=== PATIENT | female | born 1990 | race Caucasian/White ===

== ENCOUNTER 2023-07-05 12:47 | Outpatient (CLI) | payer BC, SELFPAY ==
--- NOTE | 2023-07-05 13:00 | CRLHL7_ITS ---
For Patients: As a result of the Cures Act, medical imaging exams and procedure reports are released immediately into your electronic medical record. You may view this report before your referring provider. If you have questions, please contact your health care provider. INDICATION: First trimester scan, establish dates. COMPARISON: None. TECHNIQUE: Real-time ames-scale imaging of the pelvis was performed. FINDINGS: Sonographic imaging demonstrates a single living intrauterine gestation. The embryo demonstrates a regular cardiac rate measuring 171 beats per minute. The embryo`s crown-rump length measurement of 1.4 cm corresponds to a gestational age of 7 weeks 5 days with a sonographic due date of 02/16/2024. There is a normal-appearing yolk sac. There are no gross abnormalities noted within the embryo at this early state of development. The gestational sac has a normal appearance. There is a 1.3 x 0.6 x 1.3 cm perigestational hemorrhage. The amount of fluid within the sac appears appropriate for gestational age. The cervix is closed. Gestational sac within the left side of the uterus. Septate uterus noted with blood products within the right side of the uterus. The ovaries are not visualized. There are no suspicious fluid collections noted in the cul-de-sac. IMPRESSION: Single living intrauterine with sonographic gestational age 7 weeks 5 days and sonographic due date of 02/16/2024. Lower uterine segment subchorionic hemorrhage measuring 1.3 x 0.6 x 1.3 cm. Septate uterus with the gestational sac located within the left side of the uterus. Within the right side of the uterus there is echogenic fluid compatible with blood products. Dictated by Indra Rivas MD @ 07/06/2023 10:46:24 AM (Electronically Signed)
== END 2023-07-05 12:48 | disposition home or self-care (01) ==
LOC: US 12:48
PROVIDERS: Visit Provider Advanced Practice Midwife
DX: Z34.91 Encounter for supervision of normal pregnancy, unspecified, first trimester (principal); O20.9 Hemorrhage in early pregnancy, unspecified; Z3A.01 Less than 8 weeks gestation of pregnancy
CPT/HCPCS: 76817; 84443; 86703; 86803; 86850; 86900; 86901; 87086; 87340

== ENCOUNTER 2023-07-05 14:19 | Outpatient (CLI) | payer BC, SELFPAY | END 2023-07-05 14:20 | disposition home or self-care (01) | PROVIDERS: Visit Provider Advanced Practice Midwife | DX: Z34.91 Encounter for supervision of normal pregnancy, unspecified, first trimester (principal); O20.9 Hemorrhage in early pregnancy, unspecified; Z3A.01 Less than 8 weeks gestation of pregnancy | CPT/HCPCS: 84443; 86592; 86703; 86762; 86787; 86803; 86850; 86900; 86901; 87086; 87340 ==

== ENCOUNTER 2023-10-03 09:54 | Outpatient (CLI) | payer BC, SELFPAY | END 2023-10-03 09:55 | disposition home or self-care (01) | LOC: NFLDREF 09:55 | PROVIDERS: Visit Provider Advanced Practice Midwife | DX: E03.9 Hypothyroidism, unspecified (principal) | CPT/HCPCS: 84443 ==

== ENCOUNTER 2023-11-28 12:49 | Outpatient (CLI) | payer BC, SELFPAY ==
--- NOTE | 2023-11-28 13:00 | CRLHL7_ITS ---
For Patients: As a result of the Cures Act, medical imaging exams and procedure reports are released immediately into your electronic medical record. You may view this report before your referring provider. If you have questions, please contact your health care provider. INDICATION: Morbid obesity due to excess calories COMPARISON: 10/23/2023 TECHNIQUE: Real time ames scale imaging of the fetus was performed. FINDINGS: Sonographic imaging demonstrates a single living intrauterine gestation. Fetus demonstrates a regular cardiac rate of 171 beats per minute. Fetus has a vertex position. The placenta lies posteriorly. Amniotic fluid volume appears normal and there is a single deepest vertical pocket: 4.5 cm. The estimated weight is 1248gm which lies at the 42nd %. On the prior OB ultrasound exam dated 10/23/2023 the estimated weight was at the 54th%. BPD 79th percentile. HC 56th percentile. AC 40th percentile. FL 32nd percentile. The HC/AC ratio measures 1.13 range (0.99-1.21). IMPRESSION: Sonographic gestational age 29 weeks 0 days and sonographic due date of 02/13/2024. Sonographic age 4 days ahead of the clinical age. Estimated weight 42nd percentile. Abdominal circumference 40th percentile. Dictated by Indra Rivas MD @ 11/29/2023 11:46:54 AM (Electronically Signed)
== END 2023-11-28 12:50 | disposition home or self-care (01) ==
LOC: US 12:49
PROVIDERS: Visit Provider Advanced Practice Midwife
DX: O99.213 Obesity complicating pregnancy, third trimester (principal); Z3A.29 29 weeks gestation of pregnancy
CPT/HCPCS: 76816; 86592

== ENCOUNTER 2024-01-11 13:46 | Outpatient (CLI) | payer BC, SELFPAY ==
--- NOTE | 2024-01-11 14:00 | US_ITS ---
Final Report Patient: MICKI BLUM Facility:?[facility] Patient ID:?[id number] Site Patient ID:?[id number]. Site :?[id number] Study:? OB Pelvis -01/11/2024 2:50:51 PM Ordering Physician:?Micki Gallagher Final Report: INDICATION: abnormal weight loss TECHNIQUE: Real time ames scale imaging of the fetus was performed. COMPARISON: 11.28.23 FINDINGS: Sonographic imaging demonstrates a single living intrauterine gestation. Fetus demonstrates a regular cardiac rate of 138 beats per minute. Fetus has a breech position. The placenta lies left-sided. Amniotic fluid volume appears normal and there is a single deepest pocket of 3.9 cm. The estimated weight is 2606gm which lies at the 59th %. On the prior OB ultrasound dated 11/28/2023 the estimated weight was at the 42nd percentile. BPD 36th percentile. HC 20th percentile. AC 86th percentile. FL 27th percentile. The fetus was active and demonstrated normal breathing movements. There was normal flexion and extension of the trunk and extremities. IMPRESSION: Normal biophysical profile score 8/8. Sonographic gestational age 34 weeks 5 days and sonographic due date of 02/17/2024. Good correlation with dates. Normal interval growth. Dictated by Indra Rivas MD @ 01/11/2024 2:58:34 PM (Electronic Signature)
== END 2024-01-11 13:47 | disposition home or self-care (01) ==
LOC: US 13:47
PROVIDERS: Visit Provider Advanced Practice Midwife
DX: Z34.93 Encounter for supervision of normal pregnancy, unspecified, third trimester (principal); R63.4 Abnormal weight loss; Z3A.34 34 weeks gestation of pregnancy
CPT/HCPCS: 76816; 76819; 84443

== ENCOUNTER 2024-01-25 14:27 | Outpatient (CLI) | payer BC, SELFPAY ==
[2024-01-26 19:53] LABS: Strep B DNA Probe POSITIVE (Negative)
[2024-01-26 20:14] LABS: Strep B Susceptibility Needed? No
== END 2024-01-25 14:28 | disposition home or self-care (01) ==
LOC: NFLDREF 14:27
PROVIDERS: Visit Provider Obstetrics & Gynecology
DX: Z34.93 Encounter for supervision of normal pregnancy, unspecified, third trimester (principal)
CPT/HCPCS: 87081; 87653

== ENCOUNTER 2024-02-03 23:20 | Inpatient (IN) | payer BC, SELFPAY ==
[2024-02-03 23:12] VITALS: BP 112/73; PULSE 108; RESP 16; TEMP 36.9
[2024-02-03 23:19] VITALS: PULSE 89; O2SAT 96
[2024-02-03 23:23] VITALS: BMI 53.2
[2024-02-03] MEDS: LACTATED RINGERS 1000 ML 1,000 ML 999 ML IV (23:33)
[2024-02-03 23:42] LABS: Basophils Percent Auto 0.2 % (0.0-3.0); Eosinophils Percent Auto 2.1 % (0.0-7.0); Hematocrit 38.4 % (33.0-51.0); Hemoglobin* 12.7 gm/dL (12.0-16.0); Immature Granulocytes Pct Auto 1.1 %; Lymphocytes Percent Auto 22.4 % (20-44); Mean Corpuscular HGB Conc 33 gm/dL (32-36); Mean Corpuscular Hemoglobin 28 pg (26-34); Mean Corpuscular Volume 85 fL (80-100); Monocytes Percent Auto 6.8 % (0.0-11.0); Neutrophils Percent Auto 67.4 % (42.0-72.0); Platelet Count* 191 K/uL (140-440); RDW Coefficient of Variation % 13.7 % (11.5-15.5); Red Blood Count 4.51 m/uL (4.00-5.20); White Blood Count* 14.04 K/uL (4.50-11.00)
[2024-02-03 23:44] LABS: Slide Review Reflex No
[2024-02-03] MEDS: AZITHROMYCIN 500 MG in 0.9 % SODIUM CHLORIDE 250 ml 250 ML 255 MG IVPB (23:55)
--- NOTE | 2024-02-03 23:56 | P.LDBA_ITS ---
Subjective History of Present Illness Date Seen: 02/03/24 Narrative: Patient is being admitted to Labor and Delivery for repeat delivery with salpingectomy. She is a 33 year old -0-1-1 woman at 38 0/7 weeks' gestation. Had rupture of membranes this evening. Currently, she is not feeling any contractions. Her history is notable for previous , and she is planning a repeat for this indication. Her fetus is known to be in breech presentation, which is confirmed on bedside ultrasound tonight. Also, she desires sterilization, and is planning for removal of her remaining tube at time of delivery. She has a history of previous ectopic with salpingectomy for treatment. Her full history and physical was dictated by Dr. Jones on 02/01/2024. Please see this for details. Specific Issues/Plans 1. Hx of a c/s for breech presentation and oligo Planning repeat c/s Growth in 3rd trimester: 01/11/2024: Breech, normal fluid with SDP 3.9 cm, EFW 59%, AC 86%. 2. Hx of oligo US in 3rd trimester normal as above Planning w/ BPP for BMI at 34 weeks 3. Hx of ectopic 4. BMI >50 Baseline Labs to include HgB A1C: 5.3% Referral to rasper machine operator: declined Referral to anesthesia: ordered Referral to OBGYN if [facility] or [employer] [employer] patient 20-week Level II detailed ultrasound, consult with MFM: Posterior placenta, no previa. Normal anatomy. Suboptimal views of facial anatomy and cardiac anatomy. Follow-up ultrasound with MFM in 4 weeks: EFW 52%, unremarkable limited anatomy Early screening for GDM (1-hour) at 16-20 weeks: Patient declined, risks of undiagnosed gestational diabetes were discussed Weekly BPP and/or NST starting at 34 weeks per MFM recommendation: Ordered, declines 35 week visit Growth ultrasound at 28 and 34 weeks per MFM recommendation: ordered w/ BPP 5. Hypothyroid TSH in 1st trimester: 1.95, continued on 50 mcg TSH second-trimester: 1.63 TSH 3rd trimester 01/11: 1.610 6. Septate uterus on 1st trimester US Growth 3rd trimester 01/11/2024: Breech, normal fluid with SDP 3.9 cm, EFW 59%, AC 86%. 7. GBS positive. COVID: fully vaccinated boosted x1 Flu: 09/04/23 TDAP: 12/12/2023 32wk Mental Health: H&P: Robert on 02/01/24 PP contraception: Salpingectomy of the remaining left tube at time of CD OB - Problem Based A/P Additional Plan (1) History of section: Problem details: Female Ghislaine 01/19/[birth year]. Breech. Status: Acute Plan: Now with rupture membranes at term. Plan is for repeat delivery with removal of remaining tube. She has already signed consent forms with Dr. Jones. She confirms desire for salpingectomy and has no questions regarding surgery. We will use a Zithromax and cefazolin for antibiotics. I will likely use a silver dressing for reduction in incision section risk. I will use Lovenox for prevention of thrombosis postoperatively. (2) Morbid obesity with body mass index (BMI) of 45.0 to 49.9 in adult: Status: Chronic (3) PROM (premature rupture of membranes): Status: Acute Delivery/Labor/Induction Plan Plan: Section OB Result Labs GBS Status: positive OB Exam Physical Exam Vital signs: Temp Pulse Resp BP Pulse Ox 98.5 F 108 H 16 112/73 96 02/03/24 23:12 02/03/24 23:12 02/03/24 23:12 02/03/24 23:12 02/03/24 23:19 Narrative: General: Pleasant, no acute distress Heart: Regular rate and rhythm, no murmur or gallop Lungs: Clear to auscultation bilaterally Abdomen: Soft, nontender, gravid, minimal pannus Lower extremities: No edema or erythema Nonstress test: Baseline 140, accelerations present, no decelerations, moderate variability. Procedure Note: Limited OB Ultrasound (CPT 12134) Performed for indication of ascertation of lie prior to . Transabdominal probe utilized. Fetus in lawrence breech position with heart rate approximately 140. Amniotic fluid subjectively low. Impression: Viable fetus with lawrence breech presentation
[2024-02-04] VITALS (30 sets, daily range): BP systolic 97–110; BP diastolic 63–75; PULSE 64–86; RESP 16–18; TEMP 36.3–37.1; O2SAT 18–100
[2024-02-04] MEDS: CEFAZOLIN 2 GM INJ IVP (00:45)
--- NOTE | 2024-02-04 02:21 | PM.OBPRCCS ---
Procedure Date of procedure: 02/04/24 Procedure Done: Global Will [facility] bill your pro fee for this procedure?: Yes Procedure Description: PREOPERATIVE DIAGNOSIS: 38 weeks' gestation Spontaneous rupture of membranes Previous delivery, desires repeat Undesired fertility Previous right salpingectomy for treatment of ectopic POSTOPERATIVE DIAGNOSIS: Same PROCEDURE: Primary low-transverse section with left salpingectomy and excision of peritoneal nodule SURGEON: Ellie Mi MD ANESTHESIA: Spinal IV FLUIDS: 1800 QBL: 600 mL Urine output: 150 mL FINDINGS: 1. Male infant, lawrence breech presentation, Apgars of 8 and 9, weight 3025 g 2. Right fallopian tube was surgically absent. Uterus was bulky along the right side, suggestive of an elongated intramural fibroid. There was also a muscular septum palpable extending from the midline fundus, measuring approximately 4 cm in length. Left fallopian tube was normal in appearance, as were bilateral ovaries. 3. There was a 2 cm nodule in the peritoneum of the anterior abdominal wall near the upward aspect of the incision that was fatty in appearance, suggestive of a lymph node. COMPLICATIONS: None PROCEDURE IN DETAIL: Patient was taken to the operating room with IV running. She received cefazolin and azithromycin in preoperative prophylaxis. Spinal anesthesia was administered. Quiroga catheter was inserted. She was prepped and draped in the usual sterile fashion. Anesthesia was tested and found to be adequate. A low-transverse skin incision was made with a scalpel and carried through to the underlying layer of fascia with the scalpel. The subcutaneous fat was dissected off the underlying fascia with Bovie. The fascia was nicked in the midline with a scalpel, and this incision was extended laterally with scissors. The fascia was noted to be thickened and scarred, consistent with previous incision. The fascia was dissected off the underlying rectus muscles with combination of sharp and blunt dissection. The rectus muscles were in the midline. Peritoneum was identified and entered bluntly. Bovie was used to widen this opening laterally. The bladder reflection was found to be well below the planned site for hysterotomy. Low-transverse uterine incision was made with a scalpel. Incision was widened bluntly. The infant's breech was grasped through the hysterotomy, but the hysterotomy to was not initially large enough to accommodate delivery of the . A T extension was created involving hysterotomy. The 's breech was then delivered through the hysterotomy, followed by the legs. The body was turned 1st to the left, then to the right to accommodate delivery of the arms, sweeping them across the chest. Finally, the 's head was delivered with the help of abdominal pressure, and was maintained in a flexed her neutral position. The mouth and nose were bulb suctioned. The cord was doubly clamped and cut. was handed off to attending rehabilitation specialist. The placenta was delivered manually, when traction on the cord alone did not suffice. The uterus was exteriorized. The uterus was cleaned of all clots and debris with the dry lap pad. The uterus was manually explored, with findings as noted above. The hysterotomy was reapproximated with 0 Vicryl in a running, locked fashion. Second layer of the same suture was used in imbricating fashion to obtain hemostasis. The adnexa were examined with findings as noted above. The left fallopian tube was grasped with Cathy clamps, and the LigaSure exact device was used to divide the cornual segment of the fallopian tube from the uterus. Dissection was carried medially to laterally through the mesosalpinx, and the blood supply of the tube was divided laterally, releasing it from the broad ligament. The specimen was sent to pathology. The dissection bed revealed hemostasis. The cul-de-sac was cleansed with a dampened laparotomy sponge. The uterus was returned to the abdomen. The gutters were cleansed with another laparotomy sponge, removing any further clots and debris. The hysterotomy was reexamined and found to be hemostatic. The peritoneum was reapproximated with 2 0 Vicryl in a running fashion. During this time, the above described nodule was noted, and this was removed from the surrounding peritoneum with the LigaSure exact device. This was sent to pathology. Hemostasis was noted. The rectus muscles were examined and found to be hemostatic. The fascia was reapproximated with looped 0 PDS in a running fashion. Subcutaneous fat was irrigated and Bovie used on oozing vessels. The subcutaneous fat was reapproximated with 2 0 plain gut suture in an interrupted fashion. The skin was closed with a subcuticular stitch of 4-0 Monocryl. Steri-Strips were applied above this, and silver dressing was then applied. Patient tolerated procedure well was taken to recovery area in stable condition. Complications: None Pathology: specimen obtained, sent to pathology Surgery Debrief Performed: Yes Surgery Debrief Comment: Confirmed desired specimen labeling: Left fallopian tube, peritoneal nodule peer Condition: stable Disposition: floor Infant total score - 1 minute: 8 total score - 5 minute: 9
--- NOTE | 2024-02-04 03:01 | W.ANESCHARGE ---
Anesthesia Charges Start Date/Time Anesthesia Start Date: 02/04/24 Anesthesia Start Time: 00:35 Stop Date/Time Anesthesia Stop Date: 02/04/24 Anesthesia Stop Time: 02:43 Summary Emergency: EMERGENCY MANAGEMENT COORDINATOR
--- NOTE | 2024-02-04 03:02 | W.PM.NB ---
Nerve Block Nerve Block Time Seen by Provider: 02:35 Date Seen: 02/04/24 Type of block requested by surgeon for post-operative analgesia: TAP Side: bilateral Time out performed: Yes Verification of patient name: Yes Verification of date of : Yes Site marking: site marked Name of person performing procedure: Napoleon Tianna Continuous monitoring Was continuous monitoring of O2 sat, B/P, monitor car operator, recorded every 15 minutes?: Yes Procedure Checklist: sterile prep, needles and gloves Ultrasound guided. Images saved: Yes Medications given in 5ml increments after negative aspiration: Marcaine %: 0.25 mL: 30 Needle gauge: 21 and Exparel mL: 10 Needle gauge: 21 Patient tolerated procedure well: Yes Additional comments: Injected in 5mL increments after negative aspiration Block Charges Block Charge (with Pro Fee): TAP Bilateral Use of Ultrasound Machine for Block: Yes- US Guidance/pain block
[2024-02-04] MEDS: LACTATED RINGERS 1000 ML 1,000 ML 125 ML IV (04:29)
[2024-02-04] MEDS: KETOROLAC 30 MG/ML inj IVP ×3 (08:17→20:14)
[2024-02-04] MEDS: ENOXAPARIN 40 MG/0.4 ML INJ SUBCUT (08:17)
[2024-02-04] MEDS: DOCUSATE SODIUM 100 MG CAPSULE PO (08:17)
[2024-02-04] MEDS: SODIUM CHLORIDE 0.9 % (FLUSH) 10 ML SYRINGE IVF (14:09)
[2024-02-05 00:45] VITALS: BP 120/72; PULSE 87; RESP 16; TEMP 36.7; O2SAT 95
[2024-02-05 01:04] VITALS: RESP 16; O2SAT 95
[2024-02-05] MEDS: KETOROLAC 30 MG/ML inj IVP ×2 (02:30→09:08)
[2024-02-05 06:01] LABS: Hemoglobin* 10.7 gm/dL (12.0-16.0)
[2024-02-05] MEDS: ENOXAPARIN 40 MG/0.4 ML INJ SUBCUT (09:08)
[2024-02-05] MEDS: DOCUSATE SODIUM 100 MG CAPSULE PO (09:09)
[2024-02-05 09:17] VITALS: BP 100/68; PULSE 86; RESP 16; TEMP 37.1; O2SAT 96
--- NOTE | 2024-02-05 10:24 | PM.OBPNVD1 ---
Documented by User: Vamshi Juarez 02/05/24 11:03 OB - PN:Subj Subjective Time Seen by Provider: 10:24 Date Seen: 02/05/24 Patient comments OB post-: no complaints, pain well controlled and flatus present [place] infant status: and doing well [place] feeding status: exclusively OB - PN: Obj Exam Physical Exam: Vital signs: Temp Pulse Resp BP Pulse Ox O2 Del Method 98.7 F 86 16 100/68 96 Room Air 02/05/24 09:17 02/05/24 09:17 02/05/24 09:17 02/05/24 09:17 02/05/24 09:17 02/05/24 09:17 Constitutional: Constitutional: no acute distress Urinary Catheter Management: Urethral: Cath placed during this visit: yes, but has since been removed by the nurse Reason for continuing: surgical procedure Insertion date: 02/04/24 Insertion time: 01:04 Removal date: 02/04/24 Removal time: 14:00 OB - PN: Obj Data Labs Labs: Laboratory Results - last 24 hr 02/05/24 05:50 Hgb 10.7 L OB - PN: A/P Delivery Assessment and Plan (1) care following delivery: Status: Acute (2) Lactating mother: Status: Acute Plan The patient feels well.? The pain is well controlled with current medications.? She has no new complaints.? Urinary output is adequate and she is voiding without difficulty.? Has a good appetite, is tolerating a general diet, is passing flatus? Has scant amount of rubra lochia.? She is ambulating well. She is and reports it is going well.? Plan day: 1 Plan: routine care Comments: Anticipating d/c in 1-2 days Documented by User: Hattie Gallagher CNM 02/05/24 19:13 OB - PN:Subj Subjective Narrative: The patient feels well.? The pain is well controlled with current medications.? She has no new complaints.? Urinary output is adequate and she is voiding without difficulty.? Has a good appetite, is tolerating a general diet, is passing flatus? Has scant amount of rubra lochia.? She is ambulating well. She is and reports it is going well.? OB - PN: Obj Exam Physical Exam: Narrative: GENERAL APPEARANCE:? normal affect, alert, no distress MOOD:? appropriate CHEST:? clear to auscultation HEART:? regular rate and rhythm ABDOMEN:? soft, non-tender the uterine fundus is At Umbilicus, Midline and is appropriate for the stage of recovery. EXTREMITIES:? normal and trace edema Incision: Silver nitrate dressing in place. Urinary Catheter Management: Urethral: Cath placed during this visit: yes, but has since been removed by the nurse OB - PN: A/P Delivery Assessment and Plan (1) care following delivery: Status: Acute (2) Lactating mother: Status: Acute Plan Comments: May see if desired. Hgb 10.7. Anticipating d/c in 1-2 days I,?Hattie Gallagher APRN, JAYA, was present for visit and have reviewed and agree with documentation by the Certified Nurse Midwifery Student.
[2024-02-05] MEDS: ACETAMINOPHEN 500 MG TABLET 1000 MG PO ×2 (12:04→18:02)
[2024-02-05] MEDS: IBUPROFEN 600 MG TABLET PO ×2 (15:02→21:00)
[2024-02-05 16:27] VITALS: BP 110/71; PULSE 85; RESP 16; TEMP 37; O2SAT 94
[2024-02-05 16:34] LABS: Rapid Plasma Reagin (RPR) Non Reactive (Non Reactive)
[2024-02-05 19:47] VITALS: BP 106/73; PULSE 90; RESP 16; O2SAT 95
[2024-02-06] MEDS: ACETAMINOPHEN 500 MG TABLET 1000 MG PO ×2 (00:03→06:32)
[2024-02-06 03:40] VITALS: BP 114/76; PULSE 87; RESP 18; TEMP 36.8; O2SAT 95
[2024-02-06] MEDS: IBUPROFEN 600 MG TABLET PO ×2 (03:40→09:17)
--- NOTE | 2024-02-06 07:32 | P.DS_ITS ---
DS: Providers Provider Date Seen: 02/06/24 Date of admission: 02/03/24 23:20 Primary care physician: Not a Local Provider Admitting Clinician: Ellie Mi MD Attending Physician on discharge: Rogelio Arango CNM Date of Discharge: 02/06/24 DS: Diagnosis Discharge Diagnosis (1) care following delivery: Status: Acute (2) Lactating mother: Status: Acute Exam Narrative: Exam Narrative: VSS. ?AfebrileGENERAL APPEARANCE: ?normal affect, alert, no distress MOOD: ?appropriate HEENT: normocephalic, neck supple, full ROM CHEST: ?Symmetrical chest wall movement. ?Normal respiratory effort. ?Clear to auscultation HEART: ?regular rate and rhythm ABDOMEN: ?soft, non-tender. Uterine fundus is firm, at Umbilicus, Midline and is appropriate for the stage of recovery. ?Bowel sounds present. EXTREMITIES: ?normal and no edema SKIN: warm, dry. ?Dressing on, clean/dry/intact ?No signs of infection noted. Const: Vital Signs, click to edit/add: Vital Signs - 24 hr 02/05/24 09:17 02/05/24 16:27 02/05/24 19:47 Temperature 98.7 F 98.6 F Pulse Rate [Pulse Oximeter] 86 85 90 Respiratory Rate 16 16 16 Blood Pressure [Ri ght Arm] 100/68 110/71 106/73 Pulse Oximetry 96 94 95 Oxygen Delivery Me thod Room Air Room Air Room Air 02/06/24 03:40 Temperature 98.2 F Pulse Rate [Pulse Oximeter] 87 Respiratory Rate 18 Blood Pressure [Ri ght Arm] 114/76 Pulse Oximetry 95 Oxygen Delivery Me thod Room Air Documenting provider has reviewed patient's vital signs: yes OB - DS: Summary Hospital Course Hospital Course: Hattie is a 33 y.o. who was admitted to L & D for repeat C/S. ?She had an uncomplicated .?The patient feels well. ?The pain is well controlled with current medications. ?She has no new complaints. ?She is breast feeding and reports things are going well.? the patient has done well.? Vitals have been stable.? She has remained afebrile.? Has a good appetite, is tolerating a general diet. ?She is voiding without difficulty.? She is passing gas and has had a bowel movement.? She is ambulating and denies any dizziness.? Has Small amount of rubra lochia. ?She had a tubal ligation for prevention. Peripartum Data Infant delivery method: Repeat Section Procedures: Procedures Operation Date: 02/03/24 23:55 Actual Procedure Side Surgeon p Repeat Section with removal of LEFT fallopian tube AND PERITONEAL NODULE. Not Applicable Ellie Mi MD Procedures: tubal ligation/salpingectomy complications: none Gender: Male Infant Discharge Plan: Home Status at Discharge Functional status at discharge: independent ambulation Overall status at discharge: patient is progressing back to baseline Time Spent with Patient Time attestation: Total time spent providing and/or coordinating discharge services: Time spent: Less than 30 minutes Discharge Plan Discharge Disposition: Home, Self-Care Date of Admission: 02/03/24 23:20 Attending Provider on Discharge: Rogelio Arango Primary Care Provider: Provider,Not a Local Condition: Stable Anticipated Discharge Date/Time: 02/06/24 12:00 Discharge Medications: New acetaminophen 500 mg Tablet 1,000 mg PO Q6H PRN (Reason: Pain) Qty: 0 0RF docusate sodium 100 mg Capsule 100 mg PO DAILY Qty: 90 2RF ibuprofen 600 mg Tablet 600 mg PO Q6H PRN (Reason: Pain) Qty: 60 0RF oxycodone 5 mg Tablet 5 - 10 mg PO Q4H PRN (Reason: Pain) Qty: 10 0RF ferrous sulfate 324 mg (65 mg iron) tablet,delayed release (DR/EC) 324 mg PO Q OTHER DAY Qty: 30 2RF Continued DHA 200 mg capsule 1 mg PO DAILY levothyroxine 50 mcg tablet 50 mcg PO QDAY Qty: 90 3RF Discharge Orders: Discharge Order (Routine); Ordered 02/06/24 Ordered By: Rogelio Arango Patient Education: OB Over the Counter Medication Information, OB /Breast Feeding Additional Instructions: Discharge instructions were reviewed with the patient including signs and symptoms of infection and home going medications Lifting Restrictions: 20 pounds for 6 weeks No not submerge incision under water X 2 weeks? Nothing vaginally for 6 weeks: no tampons or intercourse Do not drive while taking narcotic pain medication(s) Off Work or School for 6 weeks 2-week visit: incision check, discuss feeding concerns, review control options and screen for anxiety/depression. 6-week visit for an annual exam. consultation services are available to all mothers and babies for the first year after delivery.? To make an appointment, please call [phone]. Activity Level: Activity as Tolerated Discharge Diet: Regular Follow Up Appointments: Provider,Not a Local [Primary Care Provider] - [facility] [Provider Group] Forms: [employer] Info Instructions
[2024-02-06 07:42] VITALS: BP 125/93; PULSE 91; RESP 16; TEMP 36.9; O2SAT 99
[2024-02-06] MEDS: ENOXAPARIN 40 MG/0.4 ML INJ SUBCUT (09:17)
[2024-02-06] MEDS: DOCUSATE SODIUM 100 MG CAPSULE PO (09:17)
== END 2024-02-06 11:15 | disposition home or self-care (01) | DRG 540 ==
LOC: OB OUT 23:21 → OB 23:21
PROVIDERS: Admitting Provider Obstetrics & Gynecology; Visit Provider Obstetrics & Gynecology
PROC: (CPT 59514; principal; 2024-02-03 23:40)
DX: O75.82 Onset (spontaneous) of labor after 37 completed weeks of gestation but before 39 completed weeks gestation, with delivery by (planned) cesarean section (principal); O34.211 Maternal care for low transverse scar from previous cesarean delivery; O32.1XX0 Maternal care for breech presentation, not applicable or unspecified; O99.824 Streptococcus B carrier state complicating childbirth; O99.284 Endocrine, nutritional and metabolic diseases complicating childbirth; E03.9 Hypothyroidism, unspecified; E66.01 Morbid (severe) obesity due to excess calories; O99.214 Obesity complicating childbirth; Z30.2 Encounter for sterilization; Z90.79 Acquired absence of other genital organ(s); K66.8 Other specified disorders of peritoneum; G89.18 Other acute postprocedural pain; Z3A.38 38 weeks gestation of pregnancy; Z37.0 Single live birth
CPT/HCPCS: 01961; 36415; 64488; 76815; 76942; 84112; 85018; 85025; 86592; 86850; 86900; 86901; 88302; 88305; 99140; A9270; C9290; J0456; J0665; J0690; J1100; J1650; J1885; J2274; J2371; J2405; J2590; J7050; J7120

== ENCOUNTER 2024-03-12 09:37 | Outpatient (CLI) | payer BC, SELFPAY | END 2024-03-12 09:38 | disposition home or self-care (01) | LOC: NFLDREF 09:38 | PROVIDERS: Visit Provider Registered Nurse | DX: E03.9 Hypothyroidism, unspecified (principal) | CPT/HCPCS: 84443 ==

== ENCOUNTER 2025-07-21 15:31 | Outpatient (CLI) | payer BC, SELFPAY | END 2025-07-21 15:32 | disposition home or self-care (01) | LOC: NFLDREF 15:31 | PROVIDERS: Visit Provider Registered Nurse | DX: E03.9 Hypothyroidism, unspecified (principal) | CPT/HCPCS: 84443 ==